=== PATIENT | male | born 1990 | race Caucasian/White ===

== ENCOUNTER 2016-12-09 20:17 | Emergency (ER) | payer OTHER ==
[2016-12-09 20:25] VITALS: RESP 16; TEMP 98.2
[2016-12-09] MEDS ORDERED: OXYCODONE/APAP 5/325 TAB ONE (20:29)
[2016-12-09] MEDS ORDERED: LET GEL TOPICAL 1 EA SYR TP ONE ×2 (20:30→20:44)
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
[2016-12-09] MEDS ORDERED: OXYCODONE/APAP 5/325 TAB PO ONE (20:44)
[2016-12-09] MEDS ORDERED: CEPHALEXIN 500MG PREPACK#4 BTL TAKEHOME ONE (20:50)
[2016-12-09] MEDS ORDERED: SULFAMET/TMP DS PREPACK#2 BTL TAKEHOME ONE (20:50)
[2016-12-09] MEDS ORDERED: HYDROCOD/APAP 5/325 PREPACK#6 BTL TAKEHOME ONE (20:53)
[2016-12-09] MEDS ORDERED: OXYCODONE/APAP 5/325MG PREPACK#4 BTL TAKEHOME ONE (21:24)
[2016-12-09 21:43] VITALS: BP 145/88; PULSE 79; O2SAT 94
== END 2016-12-09 21:46 | disposition home or self-care (01) ==
DX: S43.102A Unspecified dislocation of left acromioclavicular joint, initial encounter (principal); F17.200 Nicotine dependence, unspecified, uncomplicated; V18.0XXA Pedal cycle driver injured in noncollision transport accident in nontraffic accident, initial encounter; Y92.410 Unspecified street and highway as the place of occurrence of the external cause; Y92.481 Parking lot as the place of occurrence of the external cause; Y99.8 Other external cause status; Y93.89 Activity, other specified
CPT/HCPCS: A4565